=== PATIENT | female | born 1975 | race Caucasian/White ===

== ENCOUNTER → 2020-10-23 13:47 | Outpatient (CLI) | payer OTHER, MEDICAID, SELFPAY ==
[2020-10-23 14:27] LABS: COVID19 -Nasal RAPID Negative (Negative)
== END ==
PROVIDERS: PCP Family Medicine; Referring Provider Specialist; Visit Provider Specialist
DX: Z01.812 Encounter for preprocedural laboratory examination (principal); Z20.822 Contact with and (suspected) exposure to COVID-19
CPT/HCPCS: 87635; C9803

== ENCOUNTER 2020-10-24 06:38 | Day surgery (SDC) | payer OTHER, MEDICAID, SELFPAY ==
[2020-10-22 12:32] VITALS: BMI 25.7
[2020-10-24] VITALS (11 sets, daily range): BP systolic 121–154; BP diastolic 75–105; PULSE 62–105; RESP 12–18; TEMP 36.5–37.1; O2SAT 92–99; BMI 25.7
--- NOTE | 2020-10-24 | PATH_ITS ---
[facility] Accession Number: [id number] . 01 Material submitted: . endometrium - ENDOMETRIAL . 02 Diagnosis: Endometrial: Portions of proliferative endometrium; negative for glandular hyperplasia, cytologic atypia, or malignancy. Avulsed portions of squamous mucosa; negative for squamous dysplasia or malignancy. Portions of endocervical tissue; negative for glandular dysplasia or malignancy. MRV 10/28/2020 1132 Local . 02 Electronically signed: . Norma Love MD, Pathologist NPI- [id number] . 01 Gross description: . ENDOMETRIAL: Received in formalin are multiple fragment(s) of neil, soft tissue measuring 3.0 x 2.0 x 0.5 cm in aggregate submitted entirely in 1 cassette(s) /CINTIA 10/25/2020 0437 Local . 02 Pathologist provided ICD-10: N92.0 . 02 CPT . 264919 Performed at: 01 [facility] [address] [facility], [place], [place] [id number] MD Chris Hill MD Phone: [phone] Performed at: 02 [facility] [address] [place], [place] [id number] MD Charisse Rosenberg MD Phone: [phone]
[2020-10-24] MEDS: LACTATED RINGERS 1,000 ML 42 ML IV (07:07)
--- NOTE | 2020-10-24 07:18 | SUR.OPER ---
Lithotomy on padded OR bed, head on pillow, arms secured on padded arm boards at <90 degrees abduction. Legs secured in padded yellow fins stirrups.
--- NOTE | 2020-10-24 07:29 | PM.PREOP ---
Pre-operative Note COVID-19 COVID-19 status: Negative Result date/Date tested (Pos, Neg/Pending): 10/23/20 Interval Note History & Physical reviewed/Exam performed by Physician: Yes Changes to H&P: No
--- NOTE | 2020-10-24 08:21 | P.OP_ITS ---
Operative Date/Time/Diagnoses Date of procedure: 10/24/20 Time of procedure: 08:21 Pre-op diagnosis: Menorrhagia Post-op diagnosis: same Procedure & Clinicians Procedure: Hysteroscopy D&C with NovaSure ablation Same procedure as scheduled: Yes Indications: Menorrhagia Surgeon: Hannah Joseph Click Yes if Unassisted: Yes Anesthesia Type: General Operative Notes Findings: Thin endometrium with possibility of small endometrial polyp Closure Type: primary Specimen(s): other (Endometrial curetting) Estimated Blood Loss (mL): 1 Blood products transfused: none Procedure in detail: Patient was brought to the operating room where she underwent general anesthesia and was placed in the [facility] Pulsatile stockings were in place and functional. Antibiotics were not indicated. Warming was with blankets. A check system was reviewed with the staff in the room. A single-tooth tenaculum was placed on the anterior lip of the cervix. The cervix was dilated to a # 6 Hegar dilator. The hysteroscope was placed through the cervix into the uterus with saline solution. Curettage was performed. The tissue was sent to pathology. The endometrial lining was very thin, possibility of some small endometrial polyps.. The NovaSure sound was used to determine the length of the uterus which was 5.5 cm. This was set on the NovaSure device. The device was placed in the uterus and the width determined to be 2.7 cm. The length and width were entered into the NovaSure machine. The plunger was pushed to the cervix to effect a good vacuum seal. This was documented by the machine. Cauterization was done with a total power 82 and 100 seconds. The NovaSure array was pulled back into the device and then the device removed. Replacement of the hysteroscope showed good charring throughout the entire uterine lining. Patient tolerated the procedure well. Counts of instruments and sponges were correct. Patient went to recovery room in good condition. Complications: none Post-operative Condition: stable Disposition: same day surgery Plan for aftercare: Home when awake and stable. Follow-up as needed
[2020-10-24] MEDS: ACETAMINOPHEN 325 MG TABLET 650 MG PO (08:40)
[2020-10-24] MEDS: OXYCODONE IR 5 MG TABLET PO ×2 (08:41→09:14)
[2020-10-24] MEDS: ONDANSETRON 4 MG/2 ML INJ IV ×2 (08:53→08:54)
[2020-10-24] MEDS: LACTATED RINGERS 1,000 ML 120 ML IV (09:00)
[2020-10-24] MEDS: METOCLOPRAMIDE 10 MG/2 ML INJ IV (09:17)
--- NOTE | 2020-10-24 09:32 | SUR.PHASEII ---
Called and spoke to Dr Nelson in OR #2. Informed of patient continued cramping after 650mg Tylenol and 10mg oxycodone. See new order for Toradol
[2020-10-24] MEDS: KETOROLAC 30 MG/ML VIAL IV (09:39)
== END 2020-10-24 08:56 | disposition home or self-care (01) ==
PROVIDERS: PCP Family Medicine; Referring Provider Specialist; Visit Provider Specialist
PROC: 0U5B8ZZ Destruction of Endometrium, Via Natural or Artificial Opening Endoscopic (ICD-10-PCS; CPT 58563; principal; 2020-10-24 07:45)
DX: N92.0 Excessive and frequent menstruation with regular cycle (principal); F41.9 Anxiety disorder, unspecified; F32.9 Major depressive disorder, single episode, unspecified
CPT/HCPCS: 58563; J1100; J1885; J2250; J2405; J2704; J2765; J3010